=== PATIENT | male | born 1960 | race Caucasian/White ===

== ENCOUNTER → 2019-01-11 | Outpatient (CLI) | payer BC ==
--- NOTE | 2019-01-11 12:02 | CT ---
EXAMINATION TYPE: CT abdomen pelvis w con DATE OF EXAM: 01/11/2019 COMPARISON: CT chest 07/01/2012 HISTORY: 58-year-old male with left abdominal and pelvic pain TECHNIQUE: Contiguous axial scanning of the abdomen and pelvis following administration of 100 ml Iso melinda 300 IV contrast. Delayed images through the kidneys and coronal/sagittal reconstructions perform ed. Noting a left adrenal mass, additional 15 minute delayed scan was performed. CT DLP: 1363 mGycm Automated exposure control for dose reduction was used. FINDINGS: Heart normal size without pericardial effusion. Calcified granuloma posterior right base without pleu ral effusion. Liver shows numerous subcentimeter hypodensities too small for accurate CT characterization, likely c ysts. The largest in the left hepatic dome measures 1.7 cm and is compatible with a cyst. Focal fat a long the anterior falciform ligament. Portal venous system is patent. No biliary ductal dilatation. Gallbladder, right adrenal gland, spleen, and pancreas appear within normal limits. A subcentimeter hypodensity within each renal cortex too small for accurate CT characterization, like ly cyst. There is a tiny exophytic indeterminate nodule measuring 1.3 cm from the upper pole of the right kidn ey which warrants follow-up. This was not present in 2013. 3.1 cm exophytic cyst medial lower pole right kidney. A lobulated heterogeneously enhancing right adrenal mass measures 5.6 x 4.2 cm. It shows relative was hout of 7% which is indeterminate and not compatible with an adrenal adenoma. No dilated small bowel, free fluid, or free air. Small periumbilical hernia. Normal appendix. Oral contrast progressed to the splenic flexure. No pericolonic inflammatory change. Moderate atherosclerotic calcifications abdominal aorta and iliac arteries. No mesenteric or retroperitoneal lymphadenopathy. Circumferential bladder wall thickening. Prostate gland measures 5.0 cm wide. Mildly patulous inguina l canals. Prominent but nonenlarged 7 mm left external iliac chain lymph node. No abnormal fluid shelby ection in the pelvis. Bones: Degenerative changes at the hips. Scattered sclerotic foci within the pelvis and sacrum, largest in the left sacral ala measuring 1.2 c m. IMPRESSION: 1. LOBULATED, HETEROGENEOUSLY ENHANCING LEFT ADRENAL MASS, NEW FROM 2012 MEASURING 5.6 X 4.2 CM. IT S HOWS A RELATIVE WASHOUT OF 7% WHICH IS INDETERMINATE. PRIMARY ADRENAL NEOPLASM, PHEOCHROMOCYTOMA, AND METASTATIC DISEASE ARE SOME DIFFERENTIAL CONSIDERATIONS. BIOPSY VERSUS CLOSE FOLLOW-UP. 2. INDETERMINATE EXOPHYTIC 1.3 CM LESION UPPER POLE RIGHT KIDNEY IS ALSO NEW FROM 2013. REASSESS AT A 3 MONTH FOLLOW-UP TO EXCLUDE AN EARLY SMALL SOLID MASS. 3. PROSTATOMEGALY (5.0 CM WIDE). 4. SCLEROTIC FOCI IN THE PELVIS AND SACRUM MEASURING UP TO 1.2 CM MAY REPRESENT B[place] ISLANDS. CORRELA TE WITH PSA VALUES AND NUCLEAR MEDICINE WHOLE BODY BONE SCAN TO EXCLUDE METASTATIC DISEASE.
== END | disposition home or self-care (01) ==
LOC: RADCTMAIN 09:19
PROVIDERS: ATTEND Family Medicine
DX: N40.0 Benign prostatic hyperplasia without lower urinary tract symptoms (principal); M89.8X0 Other specified disorders of bone, multiple sites
CPT/HCPCS: 74177; Q9967